=== PATIENT | female | born 1990 | race Asian ===

== ENCOUNTER 2019-06-17 09:30 | Observation (INO) | payer OTHER ==
[~2019-06-17] VITALS: Ht 160 cm; Wt 54.4 kg
== END 2019-06-17 12:00 | disposition home or self-care (01) ==
LOC: UNDOADMIN 09:30 → SPU 09:30 → UNDODISIN 12:00
PROVIDERS: ADMIT Specialist; ATTEND Specialist
DX: O36.8120 Decreased fetal movements, second trimester, not applicable or unspecified (principal); Z3A.23 23 weeks gestation of pregnancy
CPT/HCPCS: 76805; G0378